=== PATIENT | female | born 1970 | race Hispanic/Latino ===

== ENCOUNTER 2023-07-27 00:26 | Inpatient (IN) | payer OTHER ==
[~2023-07-27] VITALS: Ht 160 cm; Wt 72.2 kg
[2023-07-27 00:52] LABS: BASOPHILS # (AUTO) 0.06 K/uL (0.00-0.20); BASOPHILS % (AUTO) 0.7 % (0.0-5.0); EOSINOPHILS # (AUTO) 0.32 K/uL (0.00-0.70); EOSINOPHILS % (AUTO) 3.8 % (0.0-8.0); HEMATOCRIT 38.8 % (36-48); IMMATURE GRANULOCYTE ABSOLUTE 0.05 K/uL (0-1); LYMPHOCYTES # (AUTO) 2.6 K/uL (1.0-4.8); LYMPHOCYTES % (AUTO) 30.6 % (21.0-51.0); MEAN CORPUSCULAR HEMOGLOBIN 30.2 pg (27.0-33.0); MEAN CORPUSCULAR HGB CONC 34.8 g/dL (32.0-36.0); MEAN CORPUSCULAR VOLUME 86.8 fL (79-99); MONOCYTES # (AUTO) 0.6 K/uL (0.1-1.0); NEUTROPHILS # (AUTO) 4.8 K/uL (1.8-7.7); NEUTROPHILS % (AUTO) 57.3 % (40.0-77.0); PLATELET COUNT (AUTO) 271 K/uL (130-400); RED BLOOD CELL COUNT(AUTO) 4.47 MIL/uL (4.00-5.50); WHITE BLOOD COUNT (AUTO) 8.4 K/uL (4.8-10.8)
[2023-07-27 00:59] LABS: CREATININE 0.7 mg/dL (0.5-1.0); POTASSIUM 3.2 mmol/L (3.5-5.1)
[2023-07-27 01:06] LABS: ADD UA MICROSCOPIC NO; APPEARANCE,URINE CLEAR (CLEAR); BILIRUBIN,URINE NEGATIVE (NEGATIVE); COLOR,URINE COLORLESS (YELLOW); GLUCOSE, URINE (UA) NEGATIVE (NEGATIVE); KETONES,URINE NEGATIVE (NEGATIVE); LEUKOCYTE ESTERASE ,URINE NEGATIVE Leu/uL (NEGATIVE); NITRATE,URINE NEGATIVE (NEGATIVE); OCCULT BLOOD,URINE NEGATIVE (NEGATIVE); PH,URINE 5.5 (5.0-8.0); PROTEIN,URINE NEGATIVE (NEGATIVE); UROBILINOGEN,URINE 0.2 mg/dL (0.2-1.0)
[2023-07-27 01:15] LABS: B-TYPE NATRIURETIC PEPTIDE 6 pg/mL (0-100)
[2023-07-27] MEDS: KCL 20 MEQ ERTAB PO ONE (10:15)
[2023-07-27] MEDS: PANTOPRAZOLE 40 MG/VIAL IVP ONE (11:24)
[2023-07-27] MEDS: GLUCAGON 1MG KIT 1 MG ML IV SCH (11:25)
[2023-07-27] MEDS: MAG/ALUM/SIMETH 30 ML UDCUP PO ONE (12:09)
[2023-07-27] MEDS: LIDOCAINE HCL 2% VISCOUS 15 ML UDCUP PO ONE (12:09)
[2023-07-27 16:35] LABS: HEMOGLOBIN A1C 5.6 % (4.0-6.0)
[2023-07-27 16:50] LABS: THYROID STIMULATING HORMONE 2.74 uIU/mL (0.36-3.74)
[2023-07-27] MEDS: LACTATED RINGERS 1000ML 1,000 ML IV SCH (17:21)
[2023-07-27 17:44] LABS: INR <= 0.93 (0.85-1.15); PROTHROMBIN TIME 10.8 SEC (9.6-11.6)
[2023-07-27 17:46] LABS: PARTIAL THROMBOPLASTIN TIME 27.6 SEC (26.3-35.5)
[2023-07-27 18:24] VITALS: BP 112/69; PULSE 60; RESP 16
[2023-07-27 18:51] VITALS: O2SAT 97
[2023-07-27] MEDS ORDERED: LEVO50TA11 PO (19:48)
[2023-07-27] MEDS ORDERED: MV-M1TAB88 PO (19:48)
[2023-07-27 20:00] VITALS: BP 131/67; PULSE 57; RESP 16
[2023-07-27] MEDS: PANTOPRAZOLE 40 MG/VIAL IVP SCH (20:48)
[2023-07-27 20:56] VITALS: O2SAT 99
[2023-07-28] VITALS (16 sets, daily range): BP systolic 105–135; BP diastolic 55–80; PULSE 58–83; RESP 16–20
[2023-07-28 06:17] LABS: BASOPHILS # (AUTO) 0.05 K/uL (0.00-0.20); BASOPHILS % (AUTO) 0.8 % (0.0-5.0); EOSINOPHILS # (AUTO) 0.27 K/uL (0.00-0.70); EOSINOPHILS % (AUTO) 4.1 % (0.0-8.0); HEMATOCRIT 37.9 % (36-48); IMMATURE GRANULOCYTE ABSOLUTE 0.03 K/uL (0-1); LYMPHOCYTES % (AUTO) 30.3 % (21.0-51.0); MEAN CORPUSCULAR HEMOGLOBIN 30.2 pg (27.0-33.0); MEAN CORPUSCULAR VOLUME 88.8 fL (79-99); MONOCYTES # (AUTO) 0.5 K/uL (0.1-1.0); MONOCYTES % (AUTO) 7.4 % (3.0-13.0); NEUTROPHILS # (AUTO) 3.8 K/uL (1.8-7.7); NEUTROPHILS % (AUTO) 56.9 % (40.0-77.0); PLATELET COUNT (AUTO) 250 K/uL (130-400); RED BLOOD CELL COUNT(AUTO) 4.27 MIL/uL (4.00-5.50); RED CELL DISTRIBUTION WIDTH 12.1 % (11.0-15.5); WHITE BLOOD COUNT (AUTO) 6.6 K/uL (4.8-10.8)
[2023-07-28 06:36] LABS: CREATININE 0.7 mg/dL (0.5-1.0)
[2023-07-28] MEDS ORDERED: PROPOFOL 10 MG/ML 20ML VIAL IV ONE ×2 (11:33)
[2023-07-28] MEDS ORDERED: LIDOCAINE HCL 1% 20 ML VIAL ONE (11:33)
== END 2023-07-28 18:30 | disposition home or self-care (01) | DRG 392 ==
LOC: EDH 00:26 → EDHIP 16:06 → 3BH 17:50
PROVIDERS: ADMIT Internal Medicine; ATTEND Internal Medicine
PROC: 0DB58ZX Excision of Esophagus, Via Natural or Artificial Opening Endoscopic, Diagnostic (ICD-10-PCS; principal; 2023-07-28)
PROC: 0DB68ZX Excision of Stomach, Via Natural or Artificial Opening Endoscopic, Diagnostic (ICD-10-PCS; 2023-07-28)
DX: K31.89 Other diseases of stomach and duodenum (principal); R13.19 Other dysphagia; E03.9 Hypothyroidism, unspecified; K21.9 Gastro-esophageal reflux disease without esophagitis; Z98.891 History of uterine scar from previous surgery
CPT/HCPCS: 36415; 71045; 80048; 81003; 81025; 82550; 83036; 83690; 83880; 84145; 84443; 84484; 85025; 85610; 85730; 86140; 93005; C9113; G0378; J1610; J2704; J7120; J3490